=== PATIENT | female | born 1965 | race Caucasian/White ===

== ENCOUNTER 2017-01-19 04:25 | Emergency (ER) | payer MEDICARE ==
[~2017-01-19] VITALS: Ht 162.6 cm; Wt 72.7 kg
[2017-01-19] MEDS ORDERED: Adenosine 3 mg/mL 2 mL Inj IVPUSH ONE ×2 (04:30→04:45)
[2017-01-19] MEDS ORDERED: Adenosine 3 mg/mL 2 mL Inj ONE (04:30)
[2017-01-19 04:36] VITALS: BP 101/79; PULSE 203; RESP 22; O2SAT 98
[2017-01-19 04:40] LABS: BASOPHILS % (AUTO) 0.5 % (0-3); EOSINOPHILS % (AUTO) 3.7 % (0-5); MONOCYTES % (AUTO) 8.8 % (4-12); Mean Corpuscular Hemoglobin 25.7 pg (27.0-35.0); Mean Corpuscular Volume 81.2 fL (81-100); NEUTROPHILS % (AUTO) 42.9 % (40-74); Platelet Count 230 bil/L (150-400)
--- NOTE | 2017-01-19 04:54 | ED.REPORT ---
HPI-Chest Pain 40 and Over Date of Service Jan 19, 2017 ED Provider: Marcin Dodge MD A 51 year old female with a history of SVT presents to the ED complaining of chest pain onset a few hours ago. The patient reports that in the past, she has been able to relieve SVT symptoms with vagal maneuvers. Per nurse note, the patient performed vagal maneuvers earlier at home with no relief. In the past, symptoms have also been relieved by adenosine. The patient denies having any current chest pain. Nursing Notes Stated Complaint: CHEST PAIN Chief Complaint: Chest Pain Nursing Notes Reviewed: Yes Allergies: Coded Allergies: Penicillins (Verified Allergy, Unknown, 01/19/17) General Time Seen by MD: 04:28 Chief Complaint Chest pain Hx Obtained From: Patient Arrived By: Walk-in Sudden in Onset?: No Onset Occurred: 1 - 4 hours ago (a few hours ago) Symptom Duration: Since onset Severity: Current: Moderate Severity: Maximum: Moderate Recent Healthcare: No recent doctor visit Similar Sx Previous: No Past Medical History Past Medical History History of SVT. Past Surgical History none reported. Ambulatory Status Independent Review of Systems Respiratory: Denies: Non-productive cough Cardiovascular: Reports: Chest pain (no chest pain currently) Complete sys rev & neg: except as marked. Physical Exam Initial Vital Signs Vital Signs (First) Date Time Temp Pulse Resp B/P Pulse Ox O2 Delivery O2 Flow Rate FiO2 01/19/17 04:36 203 22 101/79 98 Room Air Initial VS: Reviewed, Vital signs abnormal General/Constitutional: Awake, Alert Patient is mildly diaphoretic. Respiratory / Chest: Breath sounds NL, Breath sounds = bilat, No rales Cardiovascular: No murmurs Patient has rapid, regular heart rate around 200. No edema. Abdomen: Soft, No guarding, No rebound Neck: No JVD Lower Extremity / Pelvis / MS: No swelling, No edema Skin: Warm, Dry Neurologic: Oriented X3, Speech NL Head / Eyes: Normocephalic, PERRL, EOMI ENT: Airway patent, Mucous membranes moist Upper Extremity / MS: No swelling, No edema Interpretation & Diagnostics Lab Results Interpretation Result Diagram: 01/19/17 0430 01/19/17 0430 Test 01/19/17 04:30 White Blood Count 11.0th/mm3 (3.8-10.1) Red Blood Count 5.48mil/mm3 (3.90-5.20) Hemoglobin 14.1g/dL (12.0-15.6) Hematocrit 44.5% (35.0-46.0) Mean Corpuscular Volume 81.2fL (81-100) Mean Corpuscular Hemoglobin 25.7pg (27.0-35.0) Mean Corpuscular Hemoglobin Concent 31.7% (32.0-37.0) Red Cell Distribution Width 18.2% (12.3-15.4) Platelet Count 230bil/L (150-400) Neutrophils (%) (Auto) 42.9% (40-74) Lymphocytes (%) (Auto) 44.0% (14-46) Monocytes (%) (Auto) 8.8% (4-12) Eosinophils (%) (Auto) 3.7% (0-5) Basophils (%) (Auto) 0.5% (0-3) Sodium Level 140mEq/L (134-144) Potassium Level 4.3mEq/L (3.5-5.2) Chloride Level 102mEq/L (97-108) Carbon Dioxide Level 21mmol/L (18-29) Blood Urea Nitrogen 10mg/dL (6-24) Creatinine 0.68mg/dL (0.57-1.00) Estimat Glomerular Filtration Rate 130mL/min (>59) Glucose Level 118mg/dL (60-99) Calcium Level 9.1mg/dL (8.5-10.1) Magnesium Level 2.2mg/dL (1.6-2.6) Total Bilirubin 0.3mg/dL (0.0-1.2) Aspartate Amino Transf (AST/SGOT) 17U/L (0-50) Alanine Aminotransferase (ALT/SGPT) 12U/L (0-32) Alkaline Phosphatase 57U/L (25-150) Troponin T < 0.010ug/L (0.0-0.011) Total Protein 7.0g/dL (6.4-8.4) Albumin 4.3g/dL (3.4-5.0) Lab Results Interpretation: Mildly elevated white blood count ECG Interpretation ECG Interpretation: Rate is 200. Supraventricular tachycardia. Repolarization abnormality, prob rate related. Time: 04:36 Interpreted by: ED physician ECG Interpretation: Rate is 69. Sinus rhythm. Left axis deviation. Time: 04:45 Interpreted by: ED physician X-Ray Chest Interpretation Chest Xray Interpretation: IMPRESSION: Normal 01/19/2017, 517 Interpretation / Wet Read by: Randolph jones ED physician Procedures Procedure Notes: The patient was placed on continuous cardiac monitoring. EKG showed she had PSVT at a rate of around 200 and some rate-related ischemic changes. She was given adenosine rapid IV push in her left antecubital vein with no conversion. She subsequently was given a second dose of adenosine 12 mg rapid IV push with a long sinus pause followed by ventricular ectopy and then a normal sinus rhythm. Repeat EKG showed normalization of all findings. Re-Eval/Medical Decision Med Decision/Clinical Course 51-year-old female who presents with a heart rate around 200 and some chest discomfort and shortness breath. This is coming going on for about 2 hours and did not resolve with her usual maneuvers. EKG showed PSVT. She was given 6 mg with out conversion and 12 mg IV adenosine with conversion to normal sinus rate. Labs were all normal. She is comfortable at the present time and is being discharged home. Source of Hx: Old records Time of Eval: 04:29 Re-Evaluation/Progress Note: Rechecked patient and explained plan to use adenosine. Time of Eval: 04:34 Re-Evaluation/Progress Note: Rechecked patient and performed cardioversion. Explained plan for discharge. Patient understands and agrees with the plan. All questions addressed. Counseled Regarding: Diagnosis, Need for follow-up, When/why to return to ED Discharge & Departure Primary Impression: PSVT (paroxysmal supraventricular tachycardia) Disposition: Home Discharge Condition All VS Reviewed: Yes Condition: Stable Patient Instructions: Supraventricular Tachycardia (ED) Additional Instructions: Her labs were normal. Urine given adenosine 6 mg IV without conversion. Sh was then given adenosine 12 mg IV with successful conversion. Follow-up EKG is normal. She will be discharged home. Avoid stimulants. 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 Referrals: Yamileth Henry (PCP) Scribe Attestation Portions of this note were transcribed by Yariel Lemons. I, Dr. Dodge personally performed the history, physical exam and medical decision-making; I reviewed and confirmed the accuracy of the information in the transcribed note. Signed by: Germán Larsen, 01/19/2017 0549. copies to: Yamileth Henry Howard L MD Jan 19, 2017 04:54 Yariel Lemons Jan 19, 2017 05:04
[2017-01-19 05:05] LABS: TROPONIN T < 0.010 ug/L (0.0-0.011)
[2017-01-19 05:14] LABS: Magnesium 2.2 mg/dL (1.6-2.6)
[2017-01-19 05:49] VITALS: BP 119/87; PULSE 81; RESP 12; O2SAT 97
--- NOTE | 2017-01-19 08:26 | DRSVH ---
PROCEDURE: X-RAY CHEST ONE VIEW, PORTABLE ([id number]) INDICATIONS: tachycardia TECHNIQUE: One view of the chest was acquired. COMPARISON: [facility], CR, XR CHEST 2VW, 11/15/2016, 11:30. FINDINGS: Surgical changes and devices: None. Lungs and pleura: No pleural effusions or pneumothorax. Lungs are clear. Mediastinum: Mediastinal contours appear normal. Heart size is normal. Bones and chest wall: No suspicious bony lesions. Overlying soft tissues appear unremarkable. IMPRESSION: No acute process. Dictated by: Zamzam Ford M.D. on 01/19/2017 at 8:25 Approved by: Zamzam Ford M.D. on 01/19/2017 at 8:25
== END 2017-01-19 05:47 | disposition home or self-care (01) ==
LOC: SED 04:25
DX: I47.1 Supraventricular tachycardia (principal); Z88.0 Allergy status to penicillin
CPT/HCPCS: 36415; 71010; 80053; 83735; 84484; 85025; 93005; 96374; 99285; J0153

== ENCOUNTER 2017-03-06 21:21 | Emergency (ER) | payer MEDICARE | END 2017-03-06 21:30 | disposition left against medical advice (07) | LOC: SED 21:21 | DX: I47.1 Supraventricular tachycardia (principal); Z53.21 Procedure and treatment not carried out due to patient leaving prior to being seen by health care provider ==